=== PATIENT | female | born 1980 | race Caucasian/White ===

== ENCOUNTER 2018-06-01 10:11 | Inpatient (IN) | payer OTHER ==
[~2018-06-01 10:11] MED LIST: DEXTROSE 5%-LACTATED RINGERS 1,000 ML IV SCH
[2018-06-01] MEDS ORDERED: AMPICILLIN - 2 GM in SODIUM CHLORIDE 100 ML IVPB ONE (10:15)
[2018-06-01] MEDS ORDERED: AMPICILLIN SODIUM 2 GM VIAL ONE (10:26)
[2018-06-01 10:40] VITALS: BMI 26.2
[2018-06-01] MEDS ORDERED: TUBERCULIN PPD 5 TU/0.1ML SYRINGE (IN PATIENT USE ONLY) ID ONE (11:30)
[2018-06-01 11:35] LABS: BASO % 0.1 % (0-2.0); HEMATOCRIT 39.1 % (32.4-45.2); HEMOGLOBIN 12.8 GM/dL (10.7-15.3); LYMPH % 4.3 % (8-40); MCH 29.1 pg (25.7-33.7); MCHC 32.8 g/dl (32.0-36.0); MEAN CELL VOLUME 88.6 fl (80-96); MEAN PLT VOLUME 8.5 fl (7.5-11.1); MONO % 3.4 % (3.8-10.2); NEUT % 92.2 % (42.8-82.8); PLATELET COUNT 263 K/MM3 (134-434); RBC 4.41 M/mm3 (3.60-5.2); RDW 14.1 % (11.6-15.6); WHITE BLOOD COUNT 25.7 K/mm3 (4.0-10.0)
[2018-06-01 11:51] LABS: INR 0.97 (0.83-1.09); PROTHROMBIN TIME (PATIENT) 11.4 SEC (9.7-13.0)
[2018-06-01 11:54] LABS: ACTIVATED PTT 26.6 SECONDS (25.2-36.5)
[2018-06-01 12:03] LABS: ANION GAP 12 MMOL/L (8-16); BLOOD UREA NITROGEN 11 mg/dL (7-18); CALCIUM 8.4 mg/dL (8.5-10.1); CHLORIDE 102 mmol/L (98-107); CO2 23 mmol/L (21-32); CREATININE 0.7 mg/dL (0.55-1.3); GLUCOSE,RANDOM 129 mg/dL (74-106); POTASSIUM 3.5 mmol/L (3.5-5.1); SODIUM 137 mmol/L (136-145)
[2018-06-01] MEDS ORDERED: OXYTOCIN 20 UNITS in 0.9% NS 20 UNIT/1,000 ML INFUS.BAG IV ONE (12:13)
[2018-06-01] MEDS ORDERED: LIDOCAINE HCL 1% PRESERVATIVE FREE - 30ML VIAL ONE (12:14)
--- NOTE | 2018-06-01 12:55 | PN ---
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
[2018-06-01] MEDS ORDERED: METHYLERGONOVINE MALEATE 0.2 MG/1 ML AMP IM PRN (13:05)
[2018-06-01] MEDS ORDERED: BENZOCAINE 20% 57 GM BOTTLE TP PRN (13:05)
[2018-06-01] MEDS ORDERED: BENZOCAINE 28 GM HEMORRHOIDAL OINTMENT TP PRN (13:05)
[2018-06-01] MEDS ORDERED: WITCH HAZEL 50% (TUCKS) 40 PAD/JAR PAD TP PRN (13:05)
[2018-06-01] MEDS ORDERED: BISACODYL 10 MG SUPP.RECT RC PRN (13:05)
[2018-06-01] MEDS ORDERED: OXYTOCIN 20 UNITS in 0.9% NS 20 UNIT/1,000 ML INFUS.BAG IV SCH (13:15)
--- NOTE | 2018-06-01 13:15 | HP ---
Past Medical History - Admission History Source: Patient, Medical Record Limitations to Obtaining History: No Limitations - Past Medical History Cardiovascular: No: HTN Pulmonary: No: Asthma, Bronchitis, COPD Gastrointestinal: No: GERD Hepatobiliary: No: Hepatitis B, Hepatitis C ...: 1 ...LMP: 08/19/17 ... Weeks Gestation by Dates: 40.6 ...EDC by Dates: 05/26/18 ...EDC by Sono: 06/08/18 Heme/Onc: No: Anemia Infectious Disease: No: STD's Psych: No: Anxiety, Bipolar, Depression - Past Surgical History Past Surgical History: Yes: None Hx Myomectomy: No Hx Transabdominal Cerclage: No - Smoking History Smoking history: Never smoked Have you smoked in the past 12 months: No - Alcohol/Substance Use Hx Alcohol Use: No - Social History Usual Living Arrangement: Yes: With Spouse ADL: Independent History of Recent Travel: No Home Medications - Allergies Allergies/Adverse Reactions: Allergies Allergy/AdvReac Type Severity Reaction Status Date / Time No Known Allergies Allergy Verified 06/01/18 10:45 - Home Medications Home Medications: Ambulatory Orders Tablet 1 tablet PO DAILY 06/01/18 Review of Systems - Review of Systems Constitutional: reports: No Symptoms Eyes: reports: No Symptoms HENT: reports: No Symptoms Neck: reports: No Symptoms Cardiovascular: reports: No Symptoms Respiratory: reports: No Symptoms Gastrointestinal: reports: No Symptoms Genitourinary: reports: No Symptoms Breasts: reports: No Symptoms Reported Musculoskeletal: reports: No Symptoms Integumentary: reports: No Symptoms Neurological: reports: No Symptoms Endocrine: reports: No Symptoms Hematology/Lymphatic: reports: No Symptoms Psychiatric: reports: No Symptoms Physical Exam - Maternity Vital Signs: Vital Signs Temperature 97.7 F 06/01/18 12:00 Pulse Rate 94 H 06/01/18 12:00 Respiratory Rate 18 06/01/18 12:00 Blood Pressure 121/73 06/01/18 12:00 O2 Sat by Pulse Oximetry (%) Constitutional: Yes: Well Nourished, Calm Eyes: Yes: Conjunctiva Clear HENT: Yes: Atraumatic Neck: Yes: Supple Cardiovascular: Yes: Regular Rate and Rhythm Lungs: Clear to auscultation - Abdominal Exam/OB Fundal Height: 40 Number of Fetuses: Single Presentation: Vertex Contractions: Yes Regularity: Regular Intensity: Mod/Strong Category: I Accelerations: Uniform Decelerations: None - Vaginal Exam/OB Dilatation (cm): 9 Effacement (%): 100 Amniotic Membrane Status: Intact Presentation: Vertex/Position Station: 0 (exam per nursing staff) - Physical Exam Psychiatric: Yes: Alert, Oriented - Labs Lab Results: CBC, BMP 06/01/18 11:00 06/01/18 11:00 Hemorrhage Risk Assessment - Risk Factors Medium Risk Factors: Yes: None High Risk Factors: Yes: None Risk Score: 1 Risk Level: Medium Risk Problem List - Problems (1) Group beta Strep positive Code(s): B95.1 - STREPTOCOCCUS, GROUP B, CAUSING DISEASES CLASSD ELSWHR Assessment/Plan 38 y/o with SIUP at 39 weeks by sonogram here in labor FHTS cat 1 GBS positive -for ampicillin expectant management anticipate
[2018-06-01] MEDS: IBUPROFEN 600 MG TABLET (FP) PO PRN ×3 (13:30→22:03)
[2018-06-01] MEDS: ACETAMINOPHEN 325 MG TABLET (FP) PO PRN ×3 (13:30→22:03)
[2018-06-01 13:50] LABS: ANISOCYTOSIS 1+; MACROCYTOSIS 0; PLATELET ESTIMATE NORMAL
[2018-06-02] MEDS: IBUPROFEN 600 MG TABLET (FP) PO PRN ×3 (05:05→20:14)
[2018-06-02] MEDS: ACETAMINOPHEN 325 MG TABLET (FP) PO PRN ×2 (05:05→13:10)
--- NOTE | 2018-06-02 07:08 | PN ---
Post Progress Note - Subjective Subjective: Pt without acute events overnight per nursing. Pt sleep upon my arrival to room. Post Day: 1 Type of Delivery: Vital Signs: Vital Signs Temperature 97.8 F 06/02/18 06:00 Pulse Rate 79 06/02/18 06:00 Respiratory Rate 18 06/02/18 06:00 Blood Pressure 107/60 06/02/18 06:00 O2 Sat by Pulse Oximetry (%) Uterus: Yes: Fundus Firm Abdomen/GI: Yes: Abdomen soft Lochia: Yes: Rubra Lochia, amount: Small Extremities: No: Edema Perineum: Yes: Laceration (2nd degree laceration, repaired) Activity: Ambulating - Labs Labs: CBC WBC 25.7 K/mm3 (4.0-10.0) H 06/01/18 11:00 RBC 4.41 M/mm3 (3.60-5.2) 06/01/18 11:00 Hgb 12.8 GM/dL (10.7-15.3) 06/01/18 11:00 Hct 39.1 % (32.4-45.2) 06/01/18 11:00 MCV 88.6 fl (80-96) 06/01/18 11:00 MCH 29.1 pg (25.7-33.7) 06/01/18 11:00 MCHC 32.8 g/dl (32.0-36.0) 06/01/18 11:00 RDW 14.1 % (11.6-15.6) 06/01/18 11:00 Plt Count 263 K/MM3 (134-434) 06/01/18 11:00 MPV 8.5 fl (7.5-11.1) 06/01/18 11:00 Absolute Neuts (auto) 23.7 K/mm3 (1.5-8.0) H 06/01/18 11:00 Neutrophils % 92.2 % (42.8-82.8) H 06/01/18 11:00 Neutrophils % (Manual) 98.0 % (42.8-82.8) H 06/01/18 11:00 Band Neutrophils % 0.0 % 06/01/18 11:00 Lymphocytes % 4.3 % (8-40) L 06/01/18 11:00 Lymphocytes % (Manual) 1.0 % (8-40) L 06/01/18 11:00 Monocytes % 3.4 % (3.8-10.2) L 06/01/18 11:00 Monocytes % (Manual) 1 % (3.8-10.2) L 06/01/18 11:00 Eosinophils % 0.0 % (0-4.5) 06/01/18 11:00 Eosinophils % (Manual) 0.0 % (0-4.5) 06/01/18 11:00 Basophils % 0.1 % (0-2.0) 06/01/18 11:00 Basophils % (Manual) 0.0 % (0-2.0) 06/01/18 11:00 Myelocytes % (Man) 0 % (0-2) 06/01/18 11:00 Promyelocytes % (Man) 0 % (0-2) 06/01/18 11:00 Blast Cells % (Manual) 0 % (0-0) 06/01/18 11:00 Nucleated RBC % 0 % (0-0) 06/01/18 11:00 Metamyelocytes 0 % (0-2) 06/01/18 11:00 Hypochromia 0 06/01/18 11:00 Platelet Estimate Normal 06/01/18 11:00 Polychromasia 0 06/01/18 11:00 Poikilocytosis 0 06/01/18 11:00 Anisocytosis 1+ 06/01/18 11:00 Microcytosis 1+ 06/01/18 11:00 Macrocytosis 0 06/01/18 11:00 Other Findings, Remarks: exam per nursing staff Problem List - Problems (1) Group beta Strep positive Code(s): B95.1 - STREPTOCOCCUS, GROUP B, CAUSING DISEASES CLASSD ELSWHR (2) Vaginal delivery Code(s): O80 - ENCOUNTER FOR FULL-TERM UNCOMPLICATED DELIVERY Assessment/Plan 38 y/o PPD#1 s/p normal regular diet ambulation PO pain meds routine care
[2018-06-02 09:56] LABS: BASO % 0.3 % (0-2.0); EOS % 0.9 % (0-4.5); HEMATOCRIT 30.9 % (32.4-45.2); LYMPH % 15.9 % (8-40); MCH 28.8 pg (25.7-33.7); MCHC 32.3 g/dl (32.0-36.0); MEAN PLT VOLUME 8.7 fl (7.5-11.1); MONO % 6.8 % (3.8-10.2); NEUT % 76.1 % (42.8-82.8); PLATELET COUNT 220 K/MM3 (134-434); RBC 3.47 M/mm3 (3.60-5.2); RDW 14.2 % (11.6-15.6); WHITE BLOOD COUNT 17.3 K/mm3 (4.0-10.0)
[2018-06-02] MEDS: PRENATAL VITAMINS W/ FOLIC ACID TABLET (FP) PO SCH (10:24)
[2018-06-02] MEDS ORDERED: SENNOSIDES/DOCUSATE COMBO (SENNA PLUS) TABLET (UD) PO PRN (22:00)
[2018-06-03] MEDS: IBUPROFEN 600 MG TABLET (FP) PO PRN (02:27)
[2018-06-03] MEDS: ACETAMINOPHEN 325 MG TABLET (FP) PO PRN (02:27)
[2018-06-03] MEDS: PRENATAL VITAMINS W/ FOLIC ACID TABLET (FP) PO SCH (09:19)
--- NOTE | 2018-06-03 10:15 | DS ---
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 Vital Signs: Vital Signs Temperature 97.7 F 06/02/18 21:01 Pulse Rate 85 06/02/18 21:01 Respiratory Rate 20 06/02/18 21:01 Blood Pressure 109/75 06/02/18 21:01 O2 Sat by Pulse Oximetry (%) Constitutional: Yes: Well Nourished Eyes: Yes: WNL HENT: Yes: WNL Neck: Yes: WNL Cardiovascular: Yes: WNL Respiratory: Yes: WNL Gastrointestinal: Yes: WNL ...Rectal Exam: Yes: WNL Renal/: Yes: WNL ....Post : Yes: Uterus firm, Uterus non-tender Breast(s): Yes: WNL Musculoskeletal: Yes: WNL Extremities: Yes: WNL Neurological: Yes: Alert, Oriented Psychiatric: Yes: Alert, Oriented Labs: CBC, BMP 06/02/18 07:45 06/01/18 11:00 Delivery - Delivery Vaginal Delivery: No Problems Type of Anesthesia: Local Episiotomy/Laceration: 2nd degree EBL (cc): 250 Delivery, Single - Stages of Labor Date 1st Stage Initiatied: 06/01/18 Time 1st Stage Initiated: 04:00 Date 2nd Stage Initiated: 06/01/18 Time 2nd Stage Initiated: 12:15 Date of Delivery: 06/01/18 Time of Delivery: 12:32 Time Placenta Delivered: 12:45 Placenta: Yes: Spontaneous - Condition of Infant 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 Discharged home on post day 2. Condition: Good - Instructions Diet, Activity, Other Instructions: Physical activity Resume your normal everyday activity as tolerated no heavy lifting or exercise until seen by your surgeon. You may walk unlimited vance of and climb stairs. You may resume driving the car when you feel safe and comfortable behind the wheel. No sexual activity as instructed. Wound care If you have a bandage, leave it on, and keep dry for 48-72 hours. After that time discard the outer bandage. If they are tapes on the skin under the out of bandage leave them in place. They will peel off in the next 7 to 10 days. Do Not Peel them off. You may shower the day after surgery. If there are tapes present on the skin, you may shower over them. Diet There are no dietary restrictions. Eat healthy, high-fiber foods. Drink 6 to 8 glasses of liquid each day. This will assist in keeping your bowels are regular. Pain management You may take Tylenol or acetaminophen or Ibuprofen (for example, Motrin, Advil etc.) from my pain prescription medication is ordered should be taken as prescribed for moderate to severe pain. Call MD for any of the following: Severe pain not relieved by medication Fever of 101 or higher Excessive bleeding or drainage on dressing Inability to urinate Disposition: HOME - Home Medications Comprehensive Discharge Medication List: Ambulatory Orders Tablet 1 tablet PO DAILY 06/01/18
[2018-06-03 12:13] VITALS: BP 112/64; PULSE 91; TEMP 99
== END 2018-06-03 14:00 | disposition home or self-care (01) | DRG 560 ==
LOC: JDEL 10:11 → JLDR 10:25 → J3W 15:00
PROVIDERS: ADMIT Obstetrics & Gynecology; ATTEND Obstetrics & Gynecology
PROC: 0KQM0ZZ Repair Perineum Muscle, Open Approach (ICD-10-PCS; principal; 2018-06-01)
PROC: 10E0XZZ Delivery of Products of Conception, External Approach (ICD-10-PCS; 2018-06-01)
DX: O99.824 Streptococcus B carrier state complicating childbirth (principal); O70.1 Second degree perineal laceration during delivery; Z3A.39 39 weeks gestation of pregnancy; Z37.0 Single live birth
CPT/HCPCS: 36415; 59409; 80048; 85025; 85610; 85730; 86593; 86850; 86900; 86901